=== PATIENT | male | born 2005 | race Caucasian/White ===

== ENCOUNTER 2023-05-11 04:03 | Emergency (ER) | payer BC, MEDICAID ==
[~2023-05-11] VITALS: Ht 182.9 cm; Wt 80.0 kg
[2023-05-11 04:10] VITALS: BP 116/60; PULSE 78; RESP 16; TEMP 98; O2SAT 98
== END 2023-05-11 04:30 | disposition home or self-care (01) ==
LOC: ER 04:05
DX: F41.9 Anxiety disorder, unspecified (principal); F12.10 Cannabis abuse, uncomplicated; Z79.899 Other long term (current) drug therapy
CPT/HCPCS: 93005; 99283